=== PATIENT | male | born 1965 | race Two or more races ===

== ENCOUNTER 2016-11-12 13:48 | Inpatient (IN) | payer OTHER ==
[2016-11-12 14:29] VITALS: BMI 23.0
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
[2016-11-12] MEDS ORDERED: diphenhydrAMINE HCL 50 MG CAPSULE PO PRN (20:20)
[2016-11-12] MEDS ORDERED: chlordiazePOXIDE HCL 25 MG CAPSULE PO ONE (20:20)
[2016-11-12] MEDS ORDERED: MAG HYDROX/AL HYDROX/SIMETH 30 ML UNIT-DOSE CUP PO PRN (20:20)
[2016-11-12] MEDS ORDERED: IBUPROFEN 400 MG TABLET (FP) PO PRN (20:20)
[2016-11-12] MEDS ORDERED: MAGNESIUM CITRATE 300 ML BOTTLE PO PRN (20:20)
[2016-11-12] MEDS ORDERED: hydrOXYzine PAMOATE 50 MG CAPSULE (FP) PO PRN (20:20)
[2016-11-12] MEDS ORDERED: MENTHOL/PHENOL 1 EACH UD MM PRN (20:20)
[2016-11-12] MEDS ORDERED: P-EPHED 60MG/TRIPROLIDI 2.5MG TABLET PO PRN (20:20)
[2016-11-12] MEDS ORDERED: ACETAMINOPHEN 325 MG TABLET (FP) PO PRN (20:20)
[2016-11-12] MEDS ORDERED: MAGNESIUM HYDROX 2400MG/30ML ORAL SUSPENSION 30 ML CUP PO PRN (20:20)
[2016-11-12] MEDS ORDERED: METHADONE HCL 10 MG TABLET (FOR DETOX USE ONLY) PO ONE ×2 (20:20→23:00)
[2016-11-12] MEDS ORDERED: LOPERAMIDE HCL 2 MG CAPSULE PO PRN (20:20)
[2016-11-12] MEDS ORDERED: guaiFENesin/D-METHORPHAN HB 10 ML UNIT-DOSE CUPS PO PRN (20:20)
[2016-11-12] MEDS ORDERED: chlordiazePOXIDE HCL 25 MG CAPSULE PO PRN (20:20)
[2016-11-12] MEDS ORDERED: ALBUTEROL SO4 2.5/IPRATROPIUM 0.5 INH SOL 3 ML VIAL.NEB. NEB PRN (20:22)
[2016-11-12] MEDS ORDERED: ALBUTEROL SO4 6.7 GM HFA INHALER IH PRN (20:22)
[2016-11-12] MEDS: THIAMINE HCL 100 MG TABLET (FP) PO SCH (22:46)
[2016-11-12] MEDS: chlordiazePOXIDE HCL 25 MG CAPSULE PO SCH (22:47)
[2016-11-12 23:00] LABS: URINE APPEARANCE CLEAR; URINE BILIRUBIN NEGATIVE (NEGATIVE); URINE BLOOD NEGATIVE (NEGATIVE); URINE COLOR YELLOW; URINE GLUCOSE (UA) NEGATIVE (NEGATIVE); URINE KETONE NEGATIVE (NEGATIVE); URINE LEUK ESTERASE NEGATIVE (NEGATIVE); URINE NITRITE NEGATIVE (NEGATIVE); URINE PROTEIN NEGATIVE (NEGATIVE); URINE UROBILINOGEN NEGATIVE mg/dL (0.2-1.0)
[2016-11-13] MEDS: chlordiazePOXIDE HCL 25 MG CAPSULE PO SCH ×4 (05:30→21:59)
[2016-11-13] MEDS ORDERED: METHADONE HCL 10 MG TABLET (FOR DETOX USE ONLY) PO SCH (10:00)
[2016-11-13] MEDS ORDERED: CYCLOBENZAPRINE HCL 10 MG TABLET (FP) PO PRN (10:15)
--- NOTE | 2016-11-13 10:17 | CONSULT ---
[facility] Psychiatric Consult - Data Date of interview: 11/13/16 Admission source: [facility] Identifying data: This is 51 years old male with no psychiatric hospitalization history, intopxicated with: Alcohol, Heroin, Nicotine, history of Cocaine abuse Substance Abuse History: - Smoking Cessation. Smoking history: Current some day smoker. Have you smoked in the past 12 months: Yes. Aproximately how many cigarettes per day: 5. Hx Chewing Tobacco Use: No. Initiated information on smoking cessation: Yes. 'Breaking Loose' booklet given: 11/12/16. - Substance & Tx. History. Hx Alcohol Use: Yes. Hx Substance Use: Yes. Substance Use Type : Alcohol, Heroin. Hx Substance Use Treatment: Yes (LAST DETOX WAS HERE IN 2015; REPORTS NO REHAB EVER ). - Substances Abused. Alcohol. Route: Oral. Frequency: Daily. Amount used: liquor - 2 pints, beer- 1 case. Age of first use: 14. Date of Last Use: 11/11/16. Heroin. Route: Inhalation. Frequency : Daily. Amount used: 12 bags. Age of first use: 33. Date of Last Use: Medical History: Asthma, Cellulitis history, HTN, HepC+ Psychiatric History: Patient reports history of depression, reports taking in the past Remeron 15mg po qhs, refusing psychiatric medicatgions at this time Physical/Sexual Abuse/Trauma History: Denies Additional Comment: Observation. Detox Unit Care Protocol Mental Status Exam - Mental Status Exam Alert and Oriented to: Person Cognitive Function: Fair Patient Appearance: Unkempt Mood: Anxious Affect: Mood Congruent Patient Behavior: Cooperative Speech Pattern: Appropriate Voice Loudness: Mildly Soft/Quiet Thought Process: Circumstantial Thought Disorder: Being Controlled Hallucinations: Denies Suicidal Ideation: Denies Homicidal Ideation: Denies Insight/Judgement: Fair Sleep: Difficulty falling asleep Appetite: Weight loss Muscle strength/Tone: Mild Hypotonicity Gait/Station: Shuffling Additional Comments: Observation. Detox Unit Care Protocol Psychiatric Findings - Problem List ([place] 1, 2,3) (1) Alcohol dependence with uncomplicated withdrawal Current Visit: Yes Status: Chronic (2) Nicotine dependence Current Visit: Yes Status: Chronic Qualifiers: Nicotine product type: cigarettes Substance use status: uncomplicated Qualified Code(s): F17.210 - Nicotine dependence, cigarettes, uncomplicated (3) Opioid dependence with withdrawal Current Visit: Yes Status: Chronic (4) Cocaine dependence Current Visit: No Status: Acute Qualifiers: Substance use status: uncomplicated Qualified Code(s): F14.20 - Cocaine dependence, uncomplicated (5) Drug-induced mood disorder Current Visit: No Status: Acute (6) Alcohol dependence Current Visit: No Status: Chronic (7) Heroin dependence Current Visit: No Status: Chronic - Initial Treatment Plan Initial Treatment Plan: Observation. Detox Unit Care Protocol
--- NOTE | 2016-11-13 10:17 | PN ---
[facility] CIWA - CIWA Score Nausea/Vomitin Muscle Tremors: 2 Anxiety: 3 Agitation: 3 Paroxysmal Sweats: 3 Orientation: 0-Oriented Tacttile Disturbances: 2-Mild Itch/Numbness/Burn Auditory Disturbances: 0-None Visual Disturbances: 0-None Headache: 0-None Present CIWA-Ar Total Score: 15 BHS COWS - Scale Resting Pulse: 1= [place] 81-100 Sweatin=Flushed/Facial Moisture Restless Observation: 1= Difficult to Sit Still Pupil Size: 1= Pupils >than Normal Bone or Joint Aches: 2= Severe Diffuse Aches Runny Nose/ Eye Tearin= Runny Nose/Eyes GI Upset > 30mins: 1= Stomach Cramp Tremor Observation of Outstretched Hands: 1= Tremor [place], Not Seen Yawning Observation: 0= None Anxiety or Irritability: 2=Irritable/Anxious Goose Flesh Skin: 0=Smooth Skin COWS Score: 13 S Progress Note (SOAP) Subjective: interrupted sleep, sweats , feels uncomfortable , no appetite Objective: 11/13/16 10:23 Vital Signs Temperature 98.1 F 11/13/16 06:44 Pulse Rate 66 11/13/16 06:44 Respiratory Rate 18 11/13/16 06:44 Blood Pressure 135/80 11/13/16 06:44 O2 Sat by Pulse Oximetry (%) Laboratory Tests 11/12/16 20:40 Urine Color Yellow Urine Appearance Clear Urine pH 5.0 D Urine Protein Negative Urine Glucose (UA) Negative Urine Ketones Negative Urine Blood Negative Urine Nitrite Negative Urine Bilirubin Negative Urine Urobilinogen Negative Ur Leukocyte Esterase Negative pending labs pt lying in bed aox3 but appearing uncomfortable Assessment: 11/13/16 10:24 withdrawal sx's Plan: cont. detox increase fluids flexeril 10mg tid /prn motrin prn
[2016-11-13 10:26] LABS: MCH 27.8 pg (25.7-33.7); MCHC 32.9 g/dl (32.0-35.9); MEAN CELL VOLUME 84.5 fl (80-96); MEAN PLT VOLUME 9.2 fl (7.5-11.1); PLATELET COUNT 446 K/MM3 (134-434); RDW 18.5 % (11.9-15.9); WHITE BLOOD COUNT 8.2 K/mm3 (4.0-10.0)
[2016-11-13 10:31] LABS: ALBUMIN 2.9 g/dl (3.4-5.0); ANION GAP 10 (8-16); CALCIUM 8.7 mg/dL (8.5-10.1); CO2 25 mmol/L (21-32); GLUCOSE,RANDOM 125 mg/dL (74-106)
[2016-11-13] MEDS: PRENATAL VITAMINS W/ FOLIC ACID TABLET (FP) PO SCH (10:33)
[2016-11-13 10:34] LABS: ALK PHOS 105 U/L (45-117); BILIRUBIN,TOTAL 0.3 mg/dL (0.2-1.0); CREATININE 0.9 mg/dL (0.7-1.3); SGOT/AST 24 U/L (15-37); SGPT/ALT 29 U/L (12-78); TOT PROT 6.7 g/dl (6.4-8.2)
[2016-11-13] MEDS: THIAMINE HCL 100 MG TABLET (FP) PO SCH (21:59)
[2016-11-14] MEDS: chlordiazePOXIDE HCL 25 MG CAPSULE PO SCH ×3 (05:58→17:55)
[2016-11-14] MEDS ORDERED: IBUPROFEN 400 MG TABLET (FP) PO PRN (07:23)
--- NOTE | 2016-11-14 07:36 | PN ---
[facility] CIWA - CIWA Score Nausea/Vomitin Muscle Tremors: 3 Anxiety: 3 Agitation: 3 Paroxysmal Sweats: 1-Minimal Palms Moist Orientation: 0-Oriented Tacttile Disturbances: 1-Very Mild Itch/Numbness Auditory Disturbances: 1-Very Mild Visual Disturbances: 1-Very Mild Sensitivity Headache: 2-Mild CIWA-Ar Total Score: 18 BHS COWS - Scale Resting Pulse: 1= [place] 81-100 Sweatin= Chills/Flushing Restless Observation: 3= Extraneous Movement Pupil Size: 1= Pupils >than Normal Bone or Joint Aches: 2= Severe Diffuse Aches Runny Nose/ Eye Tearin= Runny Nose/Eyes GI Upset > 30mins: 3= Vomiting/Diarrhea Tremor Observation of Outstretched Hands: 2= Slight Tremor Visible Yawning Observation: 1= 1-2x During Session Anxiety or Irritability: 2=Irritable/Anxious Goose Flesh Skin: 0=Smooth Skin COWS Score: 18 [facility] Progress Note (SOAP) Subjective: ALERT,IRRITABLE,ANXIOUS,INTERRUPTED SLEEP,PAIN IN THE BODY,BACK,TREMOR Objective: 11/14/16 07:34 Vital Signs Temperature 98.1 F 11/14/16 06:36 Pulse Rate 89 11/14/16 06:36 Respiratory Rate 20 11/14/16 06:36 Blood Pressure 128/86 11/14/16 06:36 O2 Sat by Pulse Oximetry (%) Laboratory Last Values WBC 8.2 K/mm3 (4.0-10.0) D 11/13/16 06:30 RBC 4.17 M/mm3 (4.00-5.60) 11/13/16 06:30 Hgb 11.6 GM/dL (11.7-16.9) L D 11/13/16 06:30 Hct 35.2 % (35.4-49) L D 11/13/16 06:30 MCV 84.5 fl (80-96) 11/13/16 06:30 MCH 27.8 pg (25.7-33.7) 11/13/16 06:30 MCHC 32.9 g/dl (32.0-35.9) 11/13/16 06:30 RDW 18.5 % (11.9-15.9) H D 11/13/16 06:30 Plt Count 446 K/MM3 (134-434) H D 11/13/16 06:30 MPV 9.2 fl (7.5-11.1) D 11/13/16 06:30 Sodium 139 mmol/L (136-145) 11/13/16 06:30 Potassium 3.5 mmol/L (3.5-5.1) D 11/13/16 06:30 Chloride 104 mmol/L (98-107) 11/13/16 06:30 Carbon Dioxide 25 mmol/L (21-32) 11/13/16 06:30 Anion Gap 10 (8-16) 11/13/16 06:30 BUN 12 mg/dL (7-18) D 11/13/16 06:30 Creatinine 0.9 mg/dL (0.7-1.3) 11/13/16 06:30 Creat Clearance w eGFR > 60 (>60) 11/13/16 06:30 Random Glucose 125 mg/dL (74-106) H D 11/13/16 06:30 Calcium 8.7 mg/dL (8.5-10.1) 11/13/16 06:30 Total Bilirubin 0.3 mg/dL (0.2-1.0) 11/13/16 06:30 AST 24 U/L (15-37) 11/13/16 06:30 ALT 29 U/L (12-78) 11/13/16 06:30 Alkaline Phosphatase 105 U/L (45-117) D 11/13/16 06:30 Total Protein 6.7 g/dl (6.4-8.2) 11/13/16 06:30 Albumin 2.9 g/dl (3.4-5.0) L 11/13/16 06:30 Urine Color Yellow 11/12/16 20:40 Urine Appearance Clear 11/12/16 20:40 Urine pH 5.0 (5.0-8.0) D 11/12/16 20:40 Ur Specific Russell >= 1.030 (1.005-1.025) H 11/12/16 20:40 Urine Protein Negative (NEGATIVE) 11/12/16 20:40 Urine Glucose (UA) Negative (NEGATIVE) 11/12/16 20:40 Urine Ketones Negative (NEGATIVE) 11/12/16 20:40 Urine Blood Negative (NEGATIVE) 11/12/16 20:40 Urine Nitrite Negative (NEGATIVE) 11/12/16 20:40 Urine Bilirubin Negative (NEGATIVE) 11/12/16 20:40 Urine Urobilinogen Negative mg/dL (0.2-1.0) 11/12/16 20:40 Ur Leukocyte Esterase Negative (NEGATIVE) 11/12/16 20:40 RPR Titer Nonreactive (NONREACTIVE) 11/13/16 06:30 Assessment: 11/14/16 07:35 WITHDRAWAL SYMPTOM Plan: CONTINUE DETOX,LIDODERM PATCH,
[2016-11-14] MEDS ORDERED: LIDOCAINE 5% TOPICAL PATCH TP SCH (10:00)
[2016-11-14] MEDS ORDERED: METHADONE HCL 5 MG TABLET (FOR DETOX USE ONLY) PO SCH (10:00)
[2016-11-14] MEDS: PRENATAL VITAMINS W/ FOLIC ACID TABLET (FP) PO SCH (10:27)
[2016-11-14] MEDS: cloNIDine HCL 0.1 MG TABLET PO SCH ×2 (10:28→22:56)
--- NOTE | 2016-11-14 16:37 | EKG ---
Test Reason : Blood Pressure : / mmHG Vent. Rate : 064 BPM Atrial Rate : 064 BPM P-R Int : 150 ms QRS Dur : 084 ms QT Int : 432 ms P-R-T Axes : 054 063 053 degrees QTc Int : 445 ms NORMAL SINUS RHYTHM NORMAL ECG NO PREVIOUS ECGS AVAILABLE Confirmed by DORI MARTIN MD ([id number]) on 11/14/2016 4:37:03 PM Referred By: Confirmed By:DORI MARTIN MD
[2016-11-14] MEDS ORDERED: LIDOCAINE PATCH REMOVAL MC SCH (22:00)
[2016-11-14] MEDS: chlordiazePOXIDE 5 MG CAPSULE PO SCH (22:56)
[2016-11-14] MEDS: THIAMINE HCL 100 MG TABLET (FP) PO SCH (22:56)
[2016-11-15] MEDS: chlordiazePOXIDE 5 MG CAPSULE PO SCH (06:17)
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
[2016-11-15 10:30] VITALS: BP 129/81; PULSE 94; TEMP 98
[2016-11-15] MEDS ORDERED: chlordiazePOXIDE HCL 10 MG CAPSULE PO SCH (23:00)
[2016-11-16] MEDS ORDERED: METHADONE HCL 10 MG TABLET (FOR DETOX USE ONLY) PO SCH (10:00)
[2016-11-17] MEDS ORDERED: METHADONE HCL 5 MG TABLET (FOR DETOX USE ONLY) PO SCH (06:00)
== END 2016-11-15 09:29 | disposition home or self-care (01) | DRG 773 ==
LOC: YASAS 13:48 → Y6N 20:28
PROVIDERS: ADMIT Internal Medicine Addiction Medicine; ATTEND Internal Medicine Addiction Medicine
PROC: HZ2ZZZZ Detoxification Services for Substance Abuse Treatment (ICD-10-PCS; principal; 2016-11-15)
DX: F11.23 Opioid dependence with withdrawal (principal); F10.230 Alcohol dependence with withdrawal, uncomplicated; F14.20 Cocaine dependence, uncomplicated; F17.210 Nicotine dependence, cigarettes, uncomplicated; F19.24 Other psychoactive substance dependence with psychoactive substance-induced mood disorder; F32.9 Major depressive disorder, single episode, unspecified; B18.2 Chronic viral hepatitis C; J45.909 Unspecified asthma, uncomplicated; Z59.0 Homelessness
CPT/HCPCS: 36415; 80053; 81003; 85027; 86593; 93005; 93010